=== PATIENT | male | born 1965 | race Two or more races ===

== ENCOUNTER 2022-12-06 19:43 | Emergency (ER) | payer SELFPAY ==
[~2022-12-06] VITALS: Ht 165.1 cm; Wt 68.1 kg
[2022-12-06] MEDS ORDERED: ETOMIDATE (2MG/ML) 20ML VIAL IV ONE ×2 (19:57→20:45)
[2022-12-06] MEDS ORDERED: ROCURONIUM 10MG/ML 10ML VIAL IV ONE ×4 (19:57→20:45)
[2022-12-06] MEDS ORDERED: MIDAZOLAM DRIP 50 mg/50mL 50 ML IV ONE (19:57)
[2022-12-06] MEDS ORDERED: SODIUM CHLORIDE 0.9% 1,000 ML IV ONE ×3 (20:00→20:45)
[2022-12-06] MEDS ORDERED: ceFAZolin 1GM/50ML 50 ML IV ONE (20:00)
[2022-12-06] MEDS ORDERED: MIDAZOLAM DRIP 50 mg/50mL 50 ML IV SCH (20:30)
[2022-12-06] MEDS ORDERED: TETANUS-DIPTH-ACEL PERTUSSIS 0.5ML SYR Tdap IM ONE (20:30)
[2022-12-06] MEDS ORDERED: SILVER SULFADIAZINE 1 % TOPICAL CREAM 50GM TOP ONE ×2 (20:30→20:45)
[2022-12-06] MEDS ORDERED: PROPOFOL 100 ML IV ONE (20:49)
[2022-12-06 20:52] LABS: Albumin 4.2 g/dL (3.4-5.0); Calcium 8.6 mg/dL (8.5-10.1); Magnesium 2.7 mg/dL (1.6-2.6); Potassium 3.7 mmol/L (3.5-5.1)
[2022-12-06 20:54] LABS: Basophils # (auto) 0.1 10 ^3/uL (0-0.2); Eosinophils # (auto) 0.3 10 ^3/uL (0-0.8); Eosinophils % (auto) 5.6 % (0.0-7.0); Hematocrit 40.2 % (41.0-53.0); Lymphocytes % (auto) 38.4 % (10.0-50.0); Mean Corpuscular Hemoglobin 30.4 pg (28.0-32.0); Mean Corpuscular Hgb Conc. 34.7 g/dL (32.0-36.0); Mean Corpuscular Volume 87.6 fL (80.0-100.0); Monocytes # (auto) 0.3 10 ^3/uL (0-1.3); Monocytes % (auto) 5.5 % (0.0-12.0); Neutrophils # (auto) 2.5 10 ^3/uL (1.6-8.6); Neutrophils % (auto) 49.5 % (37.0-80.0); Nucleated Red Blood Cells % 0.2 %; Red Blood Cells 4.59 10^6/uL (4.5-5.90); White Blood Cell 5.1 10^3/uL (4.4-10.8)
[2022-12-06 20:55] LABS: BUN/Creatinine Ratio 25.2 (10.0-20.0); Bilirubin, Total 0.5 mg/dL (0.2-1.0); Total Protein 6.9 g/dL (6.4-8.2)
[2022-12-06] MEDS ORDERED: PROPOFOL 100 ML IV SCH ×2 (21:00→21:30)
[2022-12-06 21:20] VITALS: BP 147/84
== END 2022-12-06 21:09 | disposition short-term general hospital (02) ==
LOC: ER 19:53
DX: T20.20XA Burn of second degree of head, face, and neck, unspecified site, initial encounter (principal); T20.27XA Burn of second degree of neck, initial encounter; T21.21XA Burn of second degree of chest wall, initial encounter; R07.89 Other chest pain; E78.5 Hyperlipidemia, unspecified; X16.XXXA Contact with hot heating appliances, radiators and pipes, initial encounter; Y93.89 Activity, other specified; Y92.89 Other specified places as the place of occurrence of the external cause; Y99.8 Other external cause status
CPT/HCPCS: 31500; 36415; 36600; 71045; 80053; 82550; 82805; 83605; 83735; 83880; 84484; 85025; 87070; 87205; 90471; 90715; 93005; 96361; 96374; 99291; J2250; J2704; J7030; 94002